=== PATIENT | male | born 1945 | race Caucasian/White ===

== ENCOUNTER 2023-05-30 08:43 | Emergency (ER) | payer MEDICAID, MEDICARE ==
[~2023-05-30] VITALS: Ht 160 cm; Wt 86.0 kg
[~2023-05-30 08:43] MED LIST: ASPI-1406 PO; DOCU-138 PO; GABA-290 PO; LISI1TAB13; MONT-46 PO; RANI-325; SIMV-345 PO; TIOT18CA3 IH; ZOLP5TAB2 PO
[2023-05-30 08:56] VITALS: BP 211/81; PULSE 68; RESP 19; O2SAT 96
[2023-05-30 09:15] VITALS: TEMP 98.1
[2023-05-30] MEDS ORDERED: ACETAMINOPHEN 325MG TABLET PO ONE (09:15)
[2023-05-30] MEDS ORDERED: CLONIDINE 0.1MG TABLET PO ONE (09:15)
[2023-05-30] MEDS ORDERED: COLCHICINE 0.6MG TABLET PO ONE (09:45)
[2023-05-30] MEDS ORDERED: COLC0.6C3 MT (11:25)
[2023-05-30] MEDS ORDERED: ACET-2708 MT (11:25)
== END 2023-05-30 11:50 | disposition home or self-care (01) ==
LOC: ER 08:43
DX: M10.9 Gout, unspecified (principal); M79.674 Pain in right toe(s); I10 Essential (primary) hypertension; E11.9 Type 2 diabetes mellitus without complications; E78.00 Pure hypercholesterolemia, unspecified; Z86.73 Personal history of transient ischemic attack (TIA), and cerebral infarction without residual deficits
CPT/HCPCS: 99284